=== PATIENT | male | born 1970 | race Native Hawaiian/Other Pacific Islander ===

== ENCOUNTER 2018-04-23 15:38 | Emergency (ER) | payer OTHER ==
[~2018-04-23] VITALS: Ht 182.9 cm; Wt 107.5 kg
[2018-04-23 15:40] VITALS: TEMP 97.9
[2018-04-23 17:30] VITALS: BP 136/84
== END 2018-04-23 17:30 | disposition home or self-care (01) ==
LOC: ED 15:38
DX: T14.8XXA Other injury of unspecified body region, initial encounter (principal); L08.9 Local infection of the skin and subcutaneous tissue, unspecified; L01.00 Impetigo, unspecified; W57.XXXA Bitten or stung by nonvenomous insect and other nonvenomous arthropods, initial encounter
CPT/HCPCS: 96372; 99282; J0696

== ENCOUNTER 2019-12-03 12:36 | Day surgery (SDC) | payer OTHER | END 2019-12-03 13:50 | disposition still patient (30) | LOC: OR 12:36 | PROC: 0W9G3ZZ Drainage of Peritoneal Cavity, Percutaneous Approach (ICD-10-PCS; principal; 2019-12-03) | DX: R18.8 Other ascites (principal); R06.02 Shortness of breath | CPT/HCPCS: 49082 ==

== ENCOUNTER 2019-12-03 14:00 | Emergency (ER) | payer OTHER ==
[~2019-12-03] VITALS: Ht 182.9 cm; Wt 112.0 kg
[2019-12-03 14:22] VITALS: BP 130/103; TEMP 98.7
[2019-12-03 15:21] LABS: PLATELET COUNT 294 K/uL (142-355)
[2019-12-03 15:32] LABS: POTASSIUM 4.1 mmol/L (3.6-5.2)
== END 2019-12-03 17:25 | disposition home or self-care (01) ==
LOC: ED 14:00
PROVIDERS: Family Medicine
DX: K74.69 Other cirrhosis of liver (principal); I10 Essential (primary) hypertension; F17.210 Nicotine dependence, cigarettes, uncomplicated
CPT/HCPCS: 80053; 81000; 84484; 85027; 93005; 99283

== ENCOUNTER 2019-12-24 12:41 | Outpatient (CLI) | payer OTHER | END 2019-12-24 20:37 | disposition home or self-care (01) | LOC: US 12:41 | DX: Z01.818 Encounter for other preprocedural examination (principal); K76.9 Liver disease, unspecified; R06.02 Shortness of breath; R18.8 Other ascites | CPT/HCPCS: 36415; 85610; 85730 ==

== ENCOUNTER 2020-01-24 17:15 | Outpatient (CLI) | payer OTHER ==
[2020-01-24 17:56] LABS: POTASSIUM 5.5 mmol/L (3.6-5.2)
== END 2020-01-24 19:00 | disposition home or self-care (01) ==
LOC: LAB 17:15
PROVIDERS: ATTEND Internal Medicine
DX: K76.9 Liver disease, unspecified (principal); R06.02 Shortness of breath; R18.8 Other ascites
CPT/HCPCS: 80048

== ENCOUNTER 2020-01-28 17:00 | Outpatient (CLI) | payer OTHER | END 2020-01-28 19:33 | disposition home or self-care (01) | LOC: LAB 17:00 | PROVIDERS: ATTEND Internal Medicine | DX: R30.0 Dysuria (principal) | CPT/HCPCS: 81000; 87088 ==